=== PATIENT | male | born 2000 | race American Indian/Alaskan Native ===

== ENCOUNTER 2023-06-13 10:53 | Emergency (ER) | payer MEDICAID ==
[~2023-06-13] VITALS: Ht 170.2 cm; Wt 155.0 kg
[2023-06-13] MEDS ORDERED: oxyCODONE/APAP 10/325mg tablet PO ONE (13:55)
[2023-06-13] MEDS ORDERED: LIDOcaine 1% W/epiNEPHrine 1:100,000 20ml vial SQ ONE (13:55)
[2023-06-13] MEDS ORDERED: TETanus/Pertussis (Acell)/Diphther VAC/PF (Tdap-Adult) 0.5ml syringe IMVAC ONE (13:55)
[2023-06-13] MEDS ORDERED: LIDOCAINE 1%/EPI 1:100,000 inj. 10 ML multi-dose vial SQ ONE (13:55)
[2023-06-13 16:24] VITALS: BP 135/85; PULSE 66; RESP 16; TEMP 98; O2SAT 99
== END 2023-06-13 16:28 | disposition home or self-care (01) ==
LOC: ER 10:54
DX: S01.111A Laceration without foreign body of right eyelid and periocular area, initial encounter (principal); X58.XXXA Exposure to other specified factors, initial encounter; Y93.89 Activity, other specified; Y92.89 Other specified places as the place of occurrence of the external cause; Y99.8 Other external cause status
CPT/HCPCS: 12001; 12011; 70450; 90471; 90715; 99285; A6449

== ENCOUNTER 2023-09-16 02:32 | Emergency (ER) | payer MEDICAID ==
[~2023-09-16] VITALS: Ht 175.3 cm; Wt 72.7 kg
[2023-09-16] MEDS ORDERED: bacitracin 15gm ointment TP ONE (02:50)
[2023-09-16] MEDS: ibuprofen tablet 400 MG TABLET PO ONE (03:02)
[2023-09-16] MEDS: acetaminophen 325mg tablet PO ONE (03:02)
[2023-09-16] MEDS: bacitracin 15gm ointment TP ONE (03:03)
[2023-09-16 05:09] VITALS: BP 140/72; PULSE 72; RESP 16; TEMP 98.9; O2SAT 97
== END 2023-09-16 05:10 | disposition home or self-care (01) ==
LOC: ER 02:33
DX: T24.212A Burn of second degree of left thigh, initial encounter (principal); F12.90 Cannabis use, unspecified, uncomplicated; X13.1XXA Other contact with steam and other hot vapors, initial encounter; Y93.89 Activity, other specified; Y92.89 Other specified places as the place of occurrence of the external cause; Y99.8 Other external cause status
CPT/HCPCS: 16020; 99284; A6223; A6258; A6446; A6449